=== PATIENT | female | born 1980 | race Caucasian/White ===

== ENCOUNTER 2022-12-16 00:13 | Emergency (ER) | payer SELFPAY ==
[2022-12-16 00:24] VITALS: BP 111/72; PULSE 94; RESP 18; TEMP 98.4; BMI 22.1
[2022-12-16] MEDS ORDERED: ONDANSETRON 4 MG/2 ML VIAL IVPUSH ONE (00:36)
[2022-12-16] MEDS ORDERED: LACTATED RINGERS SOLUTION 1000 ML INFUS.BAG IV ONE (00:36)
[2022-12-16] MEDS ORDERED: ONDANSETRON 4 MG/2 ML VIAL ONE (01:00)
[2022-12-16 01:02] LABS: EPI CELLS >36 /uL (0-25.1); HYALINE CASTS 0 /uL (0-3.1); PH,URINE 7.5 (5.0-8.0); URINE APPEARANCE CLEAR; URINE BACTERIA 421 /uL (0-1359); URINE BILIRUBIN NEGATIVE (NEGATIVE); URINE COLOR YELLOW; URINE GLUCOSE (UA) NEGATIVE (NEGATIVE); URINE KETONE NEGATIVE (NEGATIVE); URINE LEUK ESTERASE 1+ (NEGATIVE); URINE NITRITE NEGATIVE (NEGATIVE); URINE PROTEIN NEGATIVE (NEGATIVE); URINE RBC 25 /uL (0-23.9); URINE UROBILINOGEN 0.2 mg/dL (0.2-1.0); URINE WBC 86 /uL (0-25.8)
[2022-12-16 01:08] LABS: BASO % 0.4 % (0-2.0); HEMOGLOBIN 10.9 GM/dL (10.7-15.3); LYMPH % 17.6 % (8-40); MCH 31.4 pg (25.7-33.7); MCHC 35.1 g/dl (32.0-36.0); MEAN CELL VOLUME 89.3 fl (80-96); MEAN PLT VOLUME 7.1 fl (7.5-11.1); MONO % 6.9 % (3.8-10.2); NEUT % 74.1 % (42.8-82.8); PLATELET COUNT 243 10^3/uL (134-434); RBC 3.48 M/mm3 (3.60-5.2); WHITE BLOOD COUNT 10.1 K/mm3 (4.0-10.0)
[2022-12-16 01:33] LABS: POTASSIUM 3.5 mmol/L (3.5-5.1)
[2022-12-16 01:34] LABS: CALCIUM 8.5 mg/dL (8.5-10.1)
[2022-12-16 01:35] LABS: ALBUMIN 3.2 g/dl (3.4-5.0); BLOOD UREA NITROGEN 5.1 mg/dL (7-18)
[2022-12-16 01:39] LABS: BILIRUBIN,TOTAL 0.1 mg/dL (0.2-1); CREATININE 0.5 mg/dL (0.55-1.3); TOT PROT 6.8 g/dl (6.4-8.2)
[2022-12-16] MEDS ORDERED: CEFTRIAXONE 1 GM in DEXTROSE 5%-WATER - 100 ML IVPB ONE (04:14)
[2022-12-16] MEDS ORDERED: CEFTRIAXONE 1 GM/50 ML BAG ONE (04:18)
== END 2022-12-16 04:49 | disposition home or self-care (01) ==
LOC: JER 00:13
PROC: 3E03329 Introduction of Other Anti-infective into Peripheral Vein, Percutaneous Approach (ICD-10-PCS; principal; 2022-12-16)
PROC: 3E033GC Introduction of Other Therapeutic Substance into Peripheral Vein, Percutaneous Approach (ICD-10-PCS; 2022-12-16)
DX: O26.892 Other specified pregnancy related conditions, second trimester (principal); R10.30 Lower abdominal pain, unspecified; O99.892 Other specified diseases and conditions complicating childbirth; R30.0 Dysuria; O26.832 Pregnancy related renal disease, second trimester; N12 Tubulo-interstitial nephritis, not specified as acute or chronic; Z3A.19 19 weeks gestation of pregnancy
CPT/HCPCS: 36415; 76815-TC; 80053; 81003; 84702; 85025; 87086; 93005; 93010; 99285-25

== ENCOUNTER 2023-05-01 07:40 | Inpatient (IN) | payer OTHER ==
[2023-05-01] MEDS ORDERED: ELECTROLYTE-148 SOLN 500 ML IV SCH ×2 (09:30→10:00)
[2023-05-01] MEDS ORDERED: CITRIC ACID/SODIUM CITRATE 30 ML UNIT-DOSE CUP PO ONE ×2 (09:30→11:45)
[2023-05-01 09:59] VITALS: BMI 27.8
[2023-05-01] MEDS: ELECTROLYTE-148 SOLN 1,000 ML IV SCH (11:54)
[2023-05-01] MEDS ORDERED: morphine SULFATE/PF 1 MG/2 ML (2cc Syringe - QUVA) ONE (12:32)
[2023-05-01] MEDS ORDERED: FENTANYL CITRATE/PF 50 MCG/ML VIAL ONE (12:32)
[2023-05-01] MEDS ORDERED: LIDOCAINE HCL/PF 2% SDV 5ML VIAL ONE (12:40)
[2023-05-01] MEDS ORDERED: PHENYLEPHRINE HCL 10 MG/1 ML SINGLE DOSE VIAL ONE (12:40)
[2023-05-01] MEDS ORDERED: ONDANSETRON 4 MG/2 ML VIAL IVPB PRN (13:54)
[2023-05-01] MEDS: OXYTOCIN 20 UNITS in 0.9% NS 20 UNIT/1,000 ML INFUS.BAG IV SCH (14:00)
[2023-05-01] MEDS ORDERED: ACETAMINOPHEN INJECTION 100 ML IVPB ONE (15:19)
[2023-05-01] MEDS: ACETAMINOPHEN 1000 MG/100 ML BAG IVPB SCH ×2 (15:20→20:44)
[2023-05-01] MEDS: IBUPROFEN 800 MG/8 ML IJ IVPB SCH ×2 (15:24→23:29)
[2023-05-01] MEDS: SENNOSIDES/DOCUSATE COMBO (SENNA PLUS) TABLET (UD) PO SCH (23:38)
[2023-05-02] MEDS: ACETAMINOPHEN 1000 MG/100 ML BAG IVPB SCH ×2 (03:05→09:00)
[2023-05-02] MEDS: IBUPROFEN 800 MG/8 ML IJ IVPB SCH (05:31)
[2023-05-02 07:44] LABS: BASO % 0.3 % (0-2.0); EOS % 0.5 % (0-4.5); HEMATOCRIT 28.4 % (32.4-45.2); HEMOGLOBIN 9.8 GM/dL (10.7-15.3); LYMPH % 8.8 % (8-40); MCH 32.5 pg (25.7-33.7); MCHC 34.3 g/dl (32.0-36.0); MEAN CELL VOLUME 94.6 fl (80-96); MEAN PLT VOLUME 7.8 fl (7.5-11.1); MONO % 4.2 % (3.8-10.2); NEUT % 86.2 % (42.8-82.8); PLATELET COUNT 162 10^3/uL (134-434); RBC 3.01 M/mm3 (3.60-5.2); RDW 13.7 % (11.6-15.6)
[2023-05-02] MEDS: FERROUS SO4 325 MG TABLET (FP) PO SCH ×2 (10:23→21:30)
[2023-05-02] MEDS ORDERED: BISACODYL 10 MG SUPP.RECT RC PRN (13:55)
[2023-05-02] MEDS ORDERED: ACETAMINOPHEN 325 MG TABLET (FP) PO PRN (14:00)
[2023-05-02] MEDS: IBUPROFEN 600 MG TABLET (FP) PO PRN ×2 (15:48→21:31)
[2023-05-02] MEDS: SIMETHICONE 80 MG TAB.CHEW (FP) PO PRN (15:49)
[2023-05-02] MEDS: oxyCODONE HCL 5 MG TABLET PO PRN (18:42)
[2023-05-02] MEDS: SENNOSIDES/DOCUSATE COMBO (SENNA PLUS) TABLET (UD) PO SCH (21:30)
[2023-05-02] MEDS: ELECTROLYTE-148 SOLN 1,000 ML IV SCH (22:07)
[2023-05-02] MEDS: OXYTOCIN 20 UNITS in 0.9% NS 20 UNIT/1,000 ML INFUS.BAG IV SCH (22:08)
[2023-05-03] MEDS: SIMETHICONE 80 MG TAB.CHEW (FP) PO PRN ×3 (07:49→19:18)
[2023-05-03] MEDS: IBUPROFEN 600 MG TABLET (FP) PO PRN ×2 (07:49→14:03)
[2023-05-03] MEDS: FERROUS SO4 325 MG TABLET (FP) PO SCH ×2 (09:26→22:20)
[2023-05-03] MEDS: oxyCODONE HCL 5 MG TABLET PO PRN (19:18)
[2023-05-03 21:38] VITALS: RESP 18
[2023-05-03] MEDS: SENNOSIDES/DOCUSATE COMBO (SENNA PLUS) TABLET (UD) PO SCH (22:21)
[2023-05-04] MEDS: IBUPROFEN 600 MG TABLET (FP) PO PRN ×2 (01:52→10:23)
[2023-05-04] MEDS: SIMETHICONE 80 MG TAB.CHEW (FP) PO PRN ×2 (02:29→10:24)
[2023-05-04] MEDS: oxyCODONE HCL 5 MG TABLET PO PRN (06:25)
[2023-05-04] MEDS: FERROUS SO4 325 MG TABLET (FP) PO SCH (10:23)
[2023-05-04 11:23] VITALS: BP 105/66; PULSE 69; TEMP 98.1
[2023-05-04 14:26] LABS: EPI CELLS 33 /uL (0-25.1); HYALINE CASTS 2 /uL (0-3.1); PH,URINE 6.5 (5.0-8.0); URINE APPEARANCE CLEAR; URINE BACTERIA 1251 /uL (0-1359); URINE BILIRUBIN NEGATIVE (NEGATIVE); URINE COLOR YELLOW; URINE GLUCOSE (UA) NEGATIVE (NEGATIVE); URINE KETONE NEGATIVE (NEGATIVE); URINE LEUK ESTERASE 2+ (NEGATIVE); URINE NITRITE NEGATIVE (NEGATIVE); URINE PROTEIN TRACE (NEGATIVE); URINE RBC 15 /uL (0-23.9); URINE UROBILINOGEN 0.2 mg/dL (0.2-1.0); URINE WBC 407 /uL (0-25.8)
== END 2023-05-04 13:40 | disposition home or self-care (01) | DRG 540 ==
LOC: JLDR 07:40 → J3W 16:15
PROVIDERS: ADMIT Specialist; ATTEND Specialist
PROC: 10D00Z1 Extraction of Products of Conception, Low, Open Approach (ICD-10-PCS; principal; 2023-05-01)
DX: O32.1XX0 Maternal care for breech presentation, not applicable or unspecified (principal); O34.13 Maternal care for benign tumor of corpus uteri, third trimester; D25.0 Submucous leiomyoma of uterus; Z3A.39 39 weeks gestation of pregnancy; Z37.0 Single live birth
CPT/HCPCS: 36415; 80053; 81003; 85025; 85027; 85610; 85730; 86780; 86850; 86900; 86901; 87086; 87389; 88307-TC; 94010; J0131